=== PATIENT | female | born 1975 | race Caucasian/White ===

== ENCOUNTER 2022-11-08 07:35 | Outpatient (CLI) | payer OTHER, SELFPAY | END 2022-11-08 07:36 | disposition home or self-care (01) | LOC: NFLDREF 11-10 03:42 | PROVIDERS: PCP Physician Assistant Medical; Referring Provider Physician Assistant Medical; Visit Provider Physician Assistant Medical | DX: Z01.419 Encounter for gynecological examination (general) (routine) without abnormal findings (principal); E78.5 Hyperlipidemia, unspecified; R03.0 Elevated blood-pressure reading, without diagnosis of hypertension; Z13.29 Encounter for screening for other suspected endocrine disorder | CPT/HCPCS: 80053; 80061; 84443 ==

== ENCOUNTER 2022-12-13 06:38 | Outpatient (CLI) | payer OTHER, SELFPAY ==
--- NOTE | 2022-12-13 07:52 | W.ANESCHARGE ---
Anesthesia Charges Start Date/Time Anesthesia Start Date: 12/13/22 Anesthesia Start Time: 07:20 Stop Date/Time Anesthesia Stop Date: 12/13/22 Anesthesia Stop Time: 07:48
--- NOTE | 2022-12-13 08:21 | W.ANESCHARGE ---
Anesthesia Charges Start Date/Time Anesthesia Start Date: 12/13/22 Anesthesia Start Time: 07:20 Stop Date/Time Anesthesia Stop Date: 12/13/22 Anesthesia Stop Time: 07:48
== END 2022-12-13 06:39 | disposition home or self-care (01) ==
LOC: OP CLINIC 06:38
PROVIDERS: PCP Physician Assistant Medical; Visit Provider Internal Medicine
DX: Z12.11 Encounter for screening for malignant neoplasm of colon (principal); K57.30 Diverticulosis of large intestine without perforation or abscess without bleeding
CPT/HCPCS: 00812; 45378; J2704

== ENCOUNTER 2022-12-26 09:38 | Outpatient (CLI) | payer OTHER, SELFPAY ==
--- NOTE | 2022-12-26 09:45 | CRLHL7_ITS ---
For Patients: As a result of the Century Cures Act, medical imaging exams and procedure reports are released immediately into your electronic medical record. You may view this report before your referring provider. If you have questions, please contact your health care provider. BILATERAL SCREENING MAMMOGRAM WITH COMPUTER-AIDED DETECTION AND TOMOSYNTHESIS TECHNIQUE: CC and MLO views were obtained. These mammographic images have been obtained using full-field digital technique. These mammographic images were interpreted with the benefit of computer-aided detection. Breast tomosynthesis was used in this interpretation. COMPARISON FILM: 09/14/19, 03/20/18. FINDINGS: There are scattered areas of fibroglandular density. IMPRESSION: There is no radiographic evidence for malignancy. ASSESSMENT: BI-RADS Category 1: Negative RECOMMENDATION: Routine screening mammogram in 1 year. A lay language report of this examination will be provided to the patient. KELIN UMANA M.D. Diagnostic/Nuclear Medicine Radiologist [email or web address] Transcribed: 1:[address]/Dictated by: Kelin Umana MD @ 12/27/2022 10:15:00 AM (Electronically Signed)
== END 2022-12-26 09:39 | disposition home or self-care (01) ==
LOC: MAMMO 09:39
PROVIDERS: PCP Physician Assistant Medical; Visit Provider Physician Assistant Medical
DX: Z12.31 Encounter for screening mammogram for malignant neoplasm of breast (principal)
CPT/HCPCS: 77063; 77067

== ENCOUNTER 2024-03-19 07:37 | Outpatient (CLI) | payer OTHER, SELFPAY | END 2024-03-19 07:38 | disposition home or self-care (01) | LOC: NFLDREF 03-27 19:06 | PROVIDERS: PCP Physician Assistant Medical; Referring Provider Physician Assistant Medical; Visit Provider Physician Assistant Medical | DX: E78.2 Mixed hyperlipidemia (principal); Z13.29 Encounter for screening for other suspected endocrine disorder; Z13.220 Encounter for screening for lipoid disorders | CPT/HCPCS: 80053; 80061; 84443 ==

== ENCOUNTER 2024-03-23 18:34 | Outpatient (CLI) | payer OTHER, SELFPAY ==
--- NOTE | 2024-03-23 18:40 | CRLHL7_ITS ---
For Patients: As a result of the Century Cures Act, medical imaging exams and procedure reports are released immediately into your electronic medical record. You may view this report before your referring provider. If you have questions, please contact your health care provider. BILATERAL SCREENING MAMMOGRAM WITH COMPUTER-AIDED DETECTION AND TOMOSYNTHESIS TECHNIQUE: CC and MLO views were obtained. These mammographic images have been obtained using full-field digital technique. These mammographic images were interpreted with the benefit of computer-aided detection. Breast Tomosynthesis was used in this interpretation. COMPARISON FILM: 12/26/22, 09/14/19, 03/20/18. FINDINGS: There are scattered areas of fibroglandular density. IMPRESSION: There is no radiographic evidence for malignancy. ASSESSMENT: BI-RADS Category 1: Negative RECOMMENDATION: Routine screening mammogram in 1 year. A lay language report of this examination will be provided to the patient. Pro Guillermo M.D. Diagnostic Radiologist [email or web address] SP/Dictated by: Pro Guillermo MD @ 03/24/2024 11:18:00 AM (Electronically Signed)
== END 2024-03-23 18:35 | disposition home or self-care (01) ==
LOC: MAMMO 18:35
PROVIDERS: PCP Physician Assistant Medical; Visit Provider Physician Assistant Medical
DX: Z12.31 Encounter for screening mammogram for malignant neoplasm of breast (principal)
CPT/HCPCS: 77063; 77067

== ENCOUNTER 2024-03-24 07:47 | Outpatient (CLI) | payer OTHER, SELFPAY ==
[2024-03-26 08:00] LABS: HPV Source Cervical/Vag; HPV, High Risk by TMA Not Detected
== END 2024-03-24 07:48 | disposition home or self-care (01) ==
PROVIDERS: PCP Physician Assistant Medical; Visit Provider Physician Assistant Medical
DX: Z12.4 Encounter for screening for malignant neoplasm of cervix (principal); Z11.51 Encounter for screening for human papillomavirus (HPV)
CPT/HCPCS: 87624; 87625; 88141; 88142

== ENCOUNTER 2024-04-09 12:51 | Outpatient (CLI) | payer OTHER, SELFPAY | END 2024-04-09 12:52 | disposition home or self-care (01) | LOC: RAD 12:52 | PROVIDERS: PCP Physician Assistant Medical; Visit Provider Physician Assistant Medical | DX: Z82.49 Family history of ischemic heart disease and other diseases of the circulatory system (principal) | CPT/HCPCS: 93306 ==